=== PATIENT | female | born 1940 | race Two or more races ===

== ENCOUNTER → 2017-06-24 | Outpatient (CLI) | payer OTHER ==
[~2017-06-24] MED LIST: ACTO35TA PO; ASPI-516 PO; ASPI81CH6 CHEW; ENOX30P SQ; FERR325T18 PO; HYDR-3288 PO; LOSA50TA2 PO; SYNT25TA PO; VENTAER INH; VITA200C3 PO; WHEEMIS3
== END ==
LOC: CPRE 08:55
PROVIDERS: ATTEND Orthopaedic Surgery Sports Medicine
DX: M17.12 Unilateral primary osteoarthritis, left knee (principal)

== ENCOUNTER 2017-07-15 05:31 | Inpatient (IN) | payer OTHER, MEDICARE ==
[~2017-07-15] VITALS: Ht 160 cm; Wt 58.7 kg
[~2017-07-15 05:31] MED LIST changes: -ACTO35TA PO; -ASPI81CH6 CHEW; -ENOX30P SQ; -FERR325T18 PO; -HYDR-3288 PO; -SYNT25TA PO; -WHEEMIS3
[2017-07-15] MEDS ORDERED: ceFAZolin 2 GM PREMIX 50 ML IV SCH (06:00)
[2017-07-15] MEDS ORDERED: POVIDONE IODINE 5% (ANTISEPSIS KIT) 4 APPLICATIONS EACH NARE PRN (06:00)
[2017-07-15] MEDS ORDERED: VANCOMYCIN 1000 MG/NS 250 ML (for <70 kg) IV SCH ×2 (06:00)
[2017-07-15] MEDS ORDERED: DEXAMETHASONE SOD PHOS 20 MG/5 ML VIAL IV PRN (06:00)
[2017-07-15] MEDS ORDERED: POVIDONE IODINE 7.5% SCRUB 118 ML BOTTLE TOPICAL SCH (06:00)
[2017-07-15] MEDS ORDERED: SODIUM CHLORID 0.9% 500 ML IV PRN (06:00)
[2017-07-15] MEDS ORDERED: CHLORHEXIDINE GLUCONATE 2 % 1 PACK (2 CLOTHS) TOPICAL PRN (06:00)
[2017-07-15] MEDS ORDERED: LACTATED RINGER'S 1000 ML IV PRN (06:00)
[2017-07-15] MEDS ORDERED: METOPROLOL TARTRATE 25 MG TAB PO PRN (06:00)
[2017-07-15] MEDS ORDERED: CHLORHEXIDINE GLUCONATE 4% SOLN 120 ML BTL TOPICAL SCH (06:00)
[2017-07-15] MEDS ORDERED: FERR325T18 PO (06:21)
[2017-07-15] MEDS ORDERED: ACETAMINOPHEN 1000 MG/100 ML 100 ML IV ONE (06:53)
[2017-07-15] MEDS ORDERED: GENTAMICIN SULFATE 80 MG/2 ML VIAL ONE (06:58)
[2017-07-15] MEDS ORDERED: ENOX30P SQ (07:03)
[2017-07-15] MEDS ORDERED: HYDR-3288 PO (07:04)
[2017-07-15] MEDS ORDERED: ASPI81CH6 CHEW (07:04)
[2017-07-15] MEDS ORDERED: ZOLPIDEM TARTRATE 5 MG TAB PO PRN (07:15)
[2017-07-15] MEDS ORDERED: Post-op Orders (for Pharmacy) XX ONE (07:15)
[2017-07-15] MEDS ORDERED: MORPHINE SULFATE 4 MG/ML INJ IV PUSH PRN (07:15)
[2017-07-15] MEDS ORDERED: BISACODYL 10 MG SUPP RECTAL PRN (07:15)
[2017-07-15] MEDS ORDERED: ONDANSETRON HCL 4 MG/2 ML VIAL IVP PRN (07:15)
[2017-07-15] MEDS ORDERED: ACETAMINOPHEN/HYDROcodone 325 MG/7.5 MG TAB PO PRN (07:15)
[2017-07-15] MEDS ORDERED: diphenhydrAMINE HCL 50 MG/ML VIAL IV PUSH PRN (07:15)
[2017-07-15] MEDS ORDERED: PROPOFOL 500 MG/50 ML INJ 100 ML ONE (07:17)
[2017-07-15] MEDS ORDERED: BUPIVACAINE HCL PF 0.25% 30 ML VIAL ONE (07:46)
[2017-07-15] MEDS ORDERED: DEXAMETHASONE SOD PHOS PF 10 MG/ML VIAL ONE (07:46)
[2017-07-15] MEDS ORDERED: SODIUM CHLORIDE 0.9% 20 ML VIAL ONE (07:53)
[2017-07-15] MEDS ORDERED: BUPIVACAINE LIPOSOME PF 1.3% 20 ML VIAL ONE (07:55)
[2017-07-15] MEDS: SODIUM CHLOR 0.9% 1000 ML INJ 1,000 ML IV SCH ×2 (08:00→18:00)
[2017-07-15] MEDS ORDERED: TRANEXAMIC ACID INJ 890 MG in SODIUM CHLORIDE 0.9% INJ 100 ML IV SCH (08:01)
[2017-07-15] MEDS ORDERED: ROPIVACAINE PERI-ARTICULAR INJECTION. P-ARTICULR SCH ×5 (08:01)
[2017-07-15] MEDS ORDERED: TRANEXAMIC PERI-ARTICULAR 3,000 MG/NS 100 ML P-ARTICULR SCH ×2 (08:01)
[2017-07-15] MEDS: LOSARTAN 50 MG TAB PO SCH (09:00)
[2017-07-15] MEDS: FERROUS SULFATE 325 MG (65 MG ELEMENTAL IRON) TAB PO SCH (09:00)
[2017-07-15] MEDS ORDERED: DO NOT ADM ANY ANTICOAGULANT DRUGS PRN (11:25)
[2017-07-15] MEDS ORDERED: *morphine SULFATE 8 MG/ML PERIprocedure ONLY ONE ×3 (11:28→11:45)
[2017-07-15] MEDS ORDERED: *HYDROmorphone PF 1 MG VIAL PERIprocedural Use ONLY ONE (11:59)
--- NOTE | 2017-07-15 11:59 | MP ---
cc: MEL METZGER M.D. DATE OF SURGERY: 07/15/2017 PREOPERATIVE DIAGNOSIS Left knee osteoarthritis. POSTOPERATIVE DIAGNOSIS Left knee osteoarthritis. Left knee lateral femoral condyle fracture. PROCEDURE 1. Left total knee arthroplasty. 2. Open reduction internal fixation lateral femoral condyle fracture. SURGEON Dr. Mel Metzger. PLUMBING FOREMAN Mel Cheatham PA-C. ANESTHESIA General with a femoral nerve block. ESTIMATED BLOOD LOSS 100 cc. COMPLICATIONS Intraoperative fracture lateral femoral condyle. IMPLANTS USED DePuy Attune, size 5 posterior stabilized femoral component, size 4 rotating platform tibial baseplate, size 5 polyethylene tibial component, size 32 patella, Synthes five-hole 4.5 mm locking plate with an additional 4.5 mm lag screw. JUSTIFICATION This patient is a 76-year-old female with a history of severe end-stage osteoarthritis involving the left knee. She has severe disabling pain with standing, walking, ambulation and weightbearing and even severe pain at rest. She has failed greater than three months of nonoperative conservative treatment. The patient was counseled as to the treatment options. We spoke about the option of surgery which will consist of a total knee arthroplasty. X-rays of the patient's left knee did reveal severe end-stage osteoarthritis with severe [id number] joint space narrowing, subchondral sclerosis, subchondral cysts, osteophyte formation and varus deformity. In regards to the surgical procedure, the total knee arthroplasty has risks which include but are not limited to anesthesia, bleeding, infection, damage to nerves and blood vessels, fracture, stiffness, blood clots and pulmonary embolism. The patient asked several questions which were answered and she did wish to proceed with surgery. PROCEDURE IN DETAIL A written consent was obtained. The patient was identified by name. General anesthesia was administered as well as two grams of IV Ancef and one gram of IV vancomycin. A well-padded tourniquet was placed on the left thigh. The left lower extremity was prepped and draped using isopropyl alcohol, Hibiclens solution and ChloraPrep solution after a timeout was performed. An Esmarch bandage was used to exsanguinate the left lower extremity and tourniquet to 250 mmHg. A longitudinal incision was made over the anterior aspect of the left knee. A medial parapatellar arthrotomy was performed. The patella was everted. A patellar resection guide was used to resect approximately 7 mm of patella. The size 32 mm guide was placed. Three drill holes were placed and the 32 mm patellar trial fit well. Attention was turned to the femur where an intramedullary guide siomara was placed and the distal femoral guide was set to remove 10 mm of distal femur 5 degrees off the anatomic valgus axis alignment. She did have a significant preoperative flexion contracture. An oscillating saw was used to perform the distal femoral cut. The patient did have significant osteoporosis of bone. Attention was turned to the tibia where an extramedullary tibial guide was set to remove 5 mm off the lowest portion of the medial tibial plateau. The tibial guide was pinned in place and tibial cut was performed. A 5 mm spacer block showed full extension. Attention was turned back to the femur where an AP sizing block measured size 5. The anterior reference 3 degree external rotation guide was used to pin a size [address] The anterior, posterior and chamfer cuts were performed. A size 5 PCL box guide was pinned in place. The PCL was box cut with an oscillating saw. The medial and lateral meniscus remnants were removed as well as bone and soft tissue debris from the posterior portion of the knee. A size 4 tibia baseplate was pinned in place and the tibia was drilled and punched. Trial components were evaluated and the leg showed full motion with extension to 0 degrees, flexion to 140. No evidence of tibial lift-off. Varus-valgus balance appeared appropriate and symmetric and the patella was noted to track centrally. When removing the trial femoral component it was noted that there appeared to be a fracture in the region of the lateral femoral condyle. At this point a fracture reduction tenaculum clamp was used to clamp and hold the fracture in a reduced position. A Synthes five-hole distal femur locking plate was then pre-contoured and applied to the lateral femoral condyle and distal femur. A combination of both locking and nonlocking screws were used for fixation. An additional 4.5 mm lag screw was then also placed anterior to the plate across the fracture for additional purchase and fixation. The fracture showed excellent stability after open reduction, internal fixation. At this point trial components were again evaluated and the final components cemented in place. With the final components the leg could achieve full extension to 0 degrees and flexion to 140. No evidence of tibial lift-off. Varus-valgus balance appeared appropriate and the patella was noted to track centrally. The knee was then thoroughly irrigated with sterile saline pulse lavage antibiotic-impregnated solution. The arthrotomy incision was closed with #1 Vicryl suture, the subcutaneous layer with 2-0 Vicryl suture and skin was closed with Dermabond. Sterile dressing was applied. The patient tolerated the procedure well. Mel Cheatham, physician distribution center assistant certified, was present during the entire procedure to include patient positioning and the procedure itself. The medical necessity of the physician distribution center assistant was indicated in this case due to the complexity of the procedure. He assisted in appropriate manipulation of the leg and also retraction of muscle, tendon, bone and neurovascular structures. He assisted with preparation of bone and also implantation of the prosthetic replacement. MD PRERNA Hinojosa/LESVIA /11:09 AM /11:35 AM
[2017-07-15] MEDS ORDERED: SODIUM CHLORIDE 0.9% 20 ML VIAL IV ONE (12:00)
[2017-07-15] MEDS ORDERED: MIDAZOLAM HCL 2 MG/2 ML VIAL IV ONE (12:00)
[2017-07-15] MEDS ORDERED: LACTATED RINGER'S 1000 ML INJ 1,000 ML IV ONE (12:00)
[2017-07-15] MEDS ORDERED: PROPOFOL 200 MG/20 ML AMP IV ONE (12:00)
[2017-07-15] MEDS ORDERED: PHENYLEPH/NS 1000 MCG/10 ML SYR IV ONE (12:00)
--- NOTE | 2017-07-15 12:48 | PD.CONS ---
HPI Service [facility] Consult Requested By Orthopedic surgery Reason for Consult Medical management Primary Care Physician Dariela Helton MD Diagnoses: History of Present Illness 76-year-old female with a history of end-stage right knee osteoarthritis with despite medical management continued to have severe right knee pain affecting her daily living up activity was taking to the operating room today and underwent right knee arthroplasty. [facility] was consulted for medical management. Case discussed with patient's and son. She reported history of hypertension. Currently denies any chest pain or shortness of breath Review of Systems Except as stated in HPI: all other systems reviewed are Neg Past Family Social History Allergies: Coded Allergies: chlorpromazine (Unverified Allergy, Severe, 03/19/17) prochlorperazine (Unverified Allergy, Severe, 03/19/17) Past Medical History Right knee osteoarthritis Hypertension Past Surgical History Right knee arthroplasty Wrist surgery Reported Medications See EMR Family History Noncontributory Social History Patient denies tobacco, alcohol or illicit drug intake Physical Exam Vital Signs Vital Signs Date Time Temp Pulse Resp B/P (MAP) Pulse Ox O2 Delivery O2 Flow Rate FiO2 07/15/17 12:30 79 12 115/68 (84) 96 07/15/17 12:15 96.9 76 12 113/65 (81) 98 Nasal Cannula 2 07/15/17 12:00 75 20 113/65 (81) 100 07/15/17 11:45 75 12 124/71 (88) 100 07/15/17 11:30 80 10 138/87 (104) 100 07/15/17 11:24 97.7 81 11 131/77 (95) 100 Nasal Cannula 2 07/15/17 06:20 97.9 75 20 161/90 (113) 99 Physical Exam GENERAL: This is a well-nourished, well-developed patient, in no apparent distress. SKIN: No rashes, ecchymoses or lesions. Cool and dry. HEAD: Atraumatic. Normocephalic. No temporal or scalp tenderness. EYES: Pupils equal round and reactive. Extraocular motions intact. No scleral icterus. No injection or drainage. ENT: Nose without bleeding, purulent drainage or septal hematoma. Throat without erythema, tonsillar hypertrophy or exudate. Uvula midline. Airway patent. NECK: Trachea midline. No JVD or lymphadenopathy. Supple, nontender, no meningeal signs. CARDIOVASCULAR: Regular rate and rhythm without murmurs, gallops, or rubs. RESPIRATORY: Clear to auscultation. Breath sounds equal bilaterally. No wheezes , rales, or rhonchi. GASTROINTESTINAL: Abdomen soft, non-tender, nondistended. No hepato-splenomegaly , or palpable masses. No guarding. MUSCULOSKELETAL: Extremities without clubbing, cyanosis, or edema. Right knee repair-neurovascular intact NEUROLOGICAL: Awake and alert. Cranial nerves II through XII intact. Motor and sensory grossly within normal limits. Five out of 5 muscle strength in all muscle groups. Normal speech. Assessment and Plan Assessment and Plan 76-year-old female with Left knee osteoarthritis 1. Left total knee arthroplasty. 2. Open reduction internal fixation lateral femoral condyle fracture. Management per orthopedic surgery IV pain management accordingly PT consult to treat and eval Lovenox for DVT prophylaxis Hypertension Resume Losartan-HCTZ DVT prophylaxis: Lovenox Thank you for this consultation Code Status Full code Discussed Condition With Patient, ,son Jordan Abarca MD Jul 15, 2017 12:48
--- NOTE | 2017-07-15 12:52 | RADRPT ---
EXAM DATE/TIME: 07/15/2017 12:00 [place] COMPARISON: No previous studies available for comparison. INDICATIONS : Post op left knee. MEDICAL HISTORY : None. SURGICAL HISTORY : None. ENCOUNTER: Initial ACUITY: 1 day PAIN SCORE: 0/10 LOCATION: Left knee FINDINGS: Two view examination of the left knee demonstrates total knee arthroplasty. The components are approp riately positioned. A side plate and osseous screw secures the lateral aspect of the distal femoral m etadiaphysis. Small cleft in the medial aspect of the tibial metaphysis may represent a small cut in the regional cortex with possible associated nondisplaced fracture. Expected superficial and deep tis pascale air. CONCLUSION: 1. Left total knee arthroplasty. All 3 components appear to be appropriately positioned. 2. Sideplate and osseous screws on the medial aspect of the distal femoral metadiaphysis. No acute fr acture. 3. A small cleft along the proximal medial tibial metaphysis and possible associated nondisplaced fra cture Kodak Adame MD on July 15, 2017 at 12:34 Board Certified Radiologist. This report was verified electronically.
[2017-07-15] MEDS ORDERED: RESP: ALBUTEROL 2.5 MG/IPRATROPIUM 0.5 MG NEB (PRN) NEB (13:00)
[2017-07-15 13:30] VITALS: BP 96/57; PULSE 74; RESP 19; TEMP 96.2; O2SAT 96
[2017-07-15] MEDS: HYDROCHLOROTHIAZIDE 12.5 MG CAP PO SCH (15:17)
[2017-07-15 16:00] VITALS: BP 106/62; PULSE 73; RESP 20; TEMP 95.1; O2SAT 93
[2017-07-15 20:00] VITALS: BP 130/64; PULSE 92; RESP 17; TEMP 96.5; O2SAT 95
[2017-07-15] MEDS: ENOXAPARIN SODIUM 30 MG/0.3 ML SYRINGE SQ SCH (23:02)
[2017-07-16] VITALS (10 sets, daily range): BP systolic 100–179; BP diastolic 53–99; PULSE 94–115; RESP 16–18; TEMP 96–98.2; O2SAT 92–97
[2017-07-16] MEDS: SODIUM CHLOR 0.9% 1000 ML INJ 1,000 ML IV SCH ×2 (03:12→12:56)
[2017-07-16] MEDS: ACETAMINOPHEN/HYDROcodone 325 MG/7.5 MG TAB PO PRN ×3 (06:55→18:39)
[2017-07-16 08:41] LABS: HEMATOCRIT 29.9 % (35.0-46.0); MEAN CELL VOLUME 86.2 FL (80.0-100.0); MEAN CORPUSCULAR HEMOGLOBIN 29.2 PG (27.0-34.0); MEAN CORPUSCULAR HGB CONC 33.9 % (32.0-36.0); PLATELET COUNT 219 TH/MM3 (150-450); RED BLOOD COUNT 3.47 MIL/MM3 (4.00-5.30); RED CELL DISTRIBUTION WIDTH 12.6 % (11.6-17.2); REVIEW FLAG FINAL; WHITE BLOOD COUNT 9.1 TH/MM3 (4.0-11.0)
--- NOTE | 2017-07-16 08:52 | PD.ORT.PN ---
Subjective Post Op Day #: 1 Subjective Remarks pain controlled with meds Objective Vitals Vital Signs Date Time Temp Pulse Resp B/P (MAP) Pulse Ox O2 Delivery O2 Flow Rate FiO2 07/16/17 08:00 98.0 115 18 123/65 (84) 92 07/16/17 07:55 18 07/16/17 04:00 98.2 110 18 100/53 (69) 94 07/16/17 00:30 97.9 110 17 107/56 (73) 94 07/15/17 20:00 96.5 92 17 130/64 (86) 95 07/15/17 16:00 95.1 73 20 106/62 (77) 93 07/15/17 13:30 96.2 74 19 96/57 (70) 96 07/15/17 12:30 79 12 115/68 (84) 96 07/15/17 12:15 96.9 76 12 113/65 (81) 98 Nasal Cannula 2 07/15/17 12:00 75 20 113/65 (81) 100 07/15/17 11:45 75 12 124/71 (88) 100 07/15/17 11:30 80 10 138/87 (104) 100 07/15/17 11:24 97.7 81 11 131/77 (95) 100 Nasal Cannula 2 I/O 07/15/17 07/15/17 07/15/17 07/16/17 07/16/17 07/16/17 07:00 15:00 23:00 07:00 15:00 23:00 Intake Total 2390 ml 480 ml 1604 ml Output Total 1000 ml 850 ml 250 ml Balance 1390 ml -370 ml 1354 ml Intake Oral 590 ml 480 ml IV Total 1800 ml 1604 ml Output Urine Total 900 ml 850 ml 250 ml Estimated Blood Loss 100 ml # Bowel Movements 0 0 Result Diagram: 07/16/17 0800 Objective Remarks in bed, nad, in room dressing c/d/i neg homans nvi Assessment & Plan Ortho Post Op Day #: 1 Problem List: Assessment and Plan s/p L TKA, ORIF Lateral Femoral Condyle fx NWB daily dressing changes lovenox d/c planning to snf rx in chart f/up dr. olsen 2 weeks Deonte Cheatham Jul 16, 2017 08:52
--- NOTE | 2017-07-16 08:53 | HHI.DCPOC ---
Discharge Care Plan Diagnosis: (1) Primary localized osteoarthrosis, lower leg Your Health Problems Are: Difficulty with ADL Goals to Promote Your Health * To prevent worsening of your condition and complications * To maintain your health at the optimal level Directions to Meet Your Goals Take your medications as prescribed Follow your dietary instruction Follow activity as directed Keep your appointments as scheduled Take your immunizations and boosters as scheduled If your symptoms worsen call your PCP, if no PCP go to Urgent Care Center or Emergency Room Smoking is Dangerous to Your Health. Avoid second hand smoke Call the 24-hour hour crisis hotline for domestic abuse at Deonte Cheatham Jul 16, 2017 08:53
[2017-07-16] MEDS ORDERED: WHEEMIS3 (08:55)
[2017-07-16] MEDS: HYDROCHLOROTHIAZIDE 12.5 MG CAP PO SCH (09:00)
[2017-07-16 09:04] LABS: POTASSIUM 3.7 MEQ/L (3.5-5.1)
[2017-07-16] MEDS: LOSARTAN 50 MG TAB PO SCH (10:41)
[2017-07-16] MEDS: FERROUS SULFATE 325 MG (65 MG ELEMENTAL IRON) TAB PO SCH (10:41)
--- NOTE | 2017-07-16 11:38 | HHI.PR ---
Subjective Remarks Patient seen and examined Stable and no acute event overnight Pain well controlled Objective Vitals Vital Signs Date Time Temp Pulse Resp B/P (MAP) Pulse Ox O2 Delivery O2 Flow Rate FiO2 07/16/17 10:51 97 21 07/16/17 08:00 98.0 115 18 123/65 (84) 92 07/16/17 07:55 18 07/16/17 04:00 98.2 110 18 100/53 (69) 94 07/16/17 00:30 97.9 110 17 107/56 (73) 94 07/15/17 20:00 96.5 92 17 130/64 (86) 95 07/15/17 16:00 95.1 73 20 106/62 (77) 93 07/15/17 13:30 96.2 74 19 96/57 (70) 96 07/15/17 12:30 79 12 115/68 (84) 96 07/15/17 12:15 96.9 76 12 113/65 (81) 98 Nasal Cannula 2 07/15/17 12:00 75 20 113/65 (81) 100 07/15/17 11:45 75 12 124/71 (88) 100 I/O 07/15/17 07/15/17 07/15/17 07/16/17 07/16/17 07/16/17 07:00 15:00 23:00 07:00 15:00 23:00 Intake Total 2390 ml 480 ml 1604 ml Output Total 1000 ml 850 ml 250 ml Balance 1390 ml -370 ml 1354 ml Intake Oral 590 ml 480 ml IV Total 1800 ml 1604 ml Output Urine Total 900 ml 850 ml 250 ml Estimated Blood Loss 100 ml # Bowel Movements 0 0 Result Diagram: 07/16/17 0800 07/16/17 0800 Imaging Last Impressions Knee X-Ray 07/15/17700 Signed Impressions: Service Date/Time: Saturday, July 15, 2017 12:00 - CONCLUSION: 1. Left total knee arthroplasty. All 3 components appear to be appropriately positioned. 2. Sideplate and osseous screws on the medial aspect of the distal femoral metadiaphysis. No acute fracture. 3. A small cleft along the proximal medial tibial metaphysis and possible associated nondisplaced fracture Kodak Adame MD Objective Remarks GENERAL: NAD SKIN: Warm and dry. HEAD: Normocephalic. EYES: No scleral icterus. No injection or drainage. NECK: Supple, trachea midline. No JVD or lymphadenopathy. CARDIOVASCULAR: Regular rate and rhythm without murmurs, gallops, or rubs. RESPIRATORY: Breath sounds equal bilaterally. No accessory muscle use. GASTROINTESTINAL: Abdomen soft, non-tender, nondistended. MUSCULOSKELETAL: No cyanosis, or edema. left knee repair BACK: Nontender without obvious deformity. No CVA tenderness. A/P Problem List: (1) Primary localized osteoarthrosis, lower leg ICD Code: M17.10 - Unilateral primary osteoarthritis, unspecified knee Assessment and Plan 76-year-old female with Left knee osteoarthritis 1. Left total knee arthroplasty. 2. Open reduction internal fixation lateral femoral condyle fracture. Management per orthopedic surgery IV pain management accordingly PT to treat and eval Lovenox for DVT prophylaxis Hypertension Continue Losartan-HCTZ DVT prophylaxis: Lovenox Problem Qualifiers (1) Primary localized osteoarthrosis, lower leg: Qualified Codes: M17.12 - Unilateral primary osteoarthritis, left knee Jordan Abarca MD Jul 16, 2017 11:38
[2017-07-16] MEDS ORDERED: PROPOFOL 200 MG/20 ML AMP IV ONE (12:00)
[2017-07-16] MEDS ORDERED: DEXAMETHASONE SOD PHOS 4 MG/ML VIAL IV ONE (12:00)
[2017-07-16] MEDS ORDERED: ONDANSETRON HCL 4 MG/2 ML VIAL IV ONE (12:00)
[2017-07-16] MEDS ORDERED: SUCCINYLCHOLINE CHLORIDE 100 MG/5 ML SYRINGE IV PUSH ONE (12:00)
[2017-07-16] MEDS ORDERED: LIDOCAINE HCL 1% PF 5 ML SYRINGE OTHER ONE (12:00)
[2017-07-16] MEDS ORDERED: PHENYLEPH/NS 1000 MCG/10 ML SYR IV ONE (12:00)
[2017-07-16] MEDS: MAGNESIUM HYDROXIDE SUSP 30 ML CUP PO SCH ×2 (16:46→18:54)
[2017-07-16] MEDS: DOCUSATE SODIUM 100 MG CAP PO SCH (16:46)
[2017-07-16] MEDS: MULTIVITAMINS/MINERALS THERAPEUTIC TAB PO SCH (20:45)
[2017-07-16] MEDS ORDERED: DOCUSATE SODIUM 100 MG CAP PO SCH (21:00)
[2017-07-16] MEDS ORDERED: cloNIDine HCL 0.1 MG TAB PO ONE (21:15)
[2017-07-16] MEDS: ENOXAPARIN SODIUM 30 MG/0.3 ML SYRINGE SQ SCH (22:03)
[2017-07-17] VITALS (7 sets, daily range): BP systolic 126–161; BP diastolic 72–94; PULSE 90–103; RESP 16–18; TEMP 95.8–98.9; O2SAT 96–100
--- NOTE | 2017-07-17 08:31 | PD.ORT.PN ---
Subjective Post Op Day #: 2 Subjective Remarks pain controlled with meds Objective Vitals Vital Signs Date Time Temp Pulse Resp B/P (MAP) Pulse Ox O2 Delivery O2 Flow Rate FiO2 07/17/17 04:00 97.2 103 17 161/93 (115) 96 07/16/17 23:29 97.4 96 16 155/88 (110) 96 07/16/17 20:45 109 171/99 (123) 07/16/17 19:39 96.8 106 17 170/96 (120) 94 07/16/17 16:45 166/83 (110) 07/16/17 16:00 96.0 99 18 179/91 (120) 97 07/16/17 13:59 18 07/16/17 12:00 97.2 100 18 143/71 (95) 94 07/16/17 10:51 97 21 I/O 07/16/17 07/16/17 07/16/17 07/17/17 07/17/17 07/17/17 07:00 15:00 23:00 07:00 15:00 23:00 Intake Total 1604 ml 600 ml 240 ml 240 ml Output Total 250 ml 100 ml Balance 1354 ml 500 ml 240 ml 240 ml Intake Oral 600 ml 240 ml 240 ml IV Total 1604 ml Output Urine Total 250 ml 100 ml # Voids 1 1 # Bowel Movements 0 0 0 Result Diagram: 07/16/17 0800 07/16/17 0800 Objective Remarks in bed, nad, in room incision no erythema, no drainage neg homans nvi Assessment & Plan Ortho Post Op Day #: 2 Problem List: Assessment and Plan s/p L TKA, ORIF Lateral Femoral Condyle fx NWB ROM as tolerated, ok to use CPM daily dressing changes lovenox HTN per med d/c planning to snf rx in chart f/up dr. olsen 2 weeks Deonte Cheatham Jul 17, 2017 08:31
[2017-07-17] MEDS: LOSARTAN 50 MG TAB PO SCH (08:50)
[2017-07-17] MEDS: HYDROCHLOROTHIAZIDE 12.5 MG CAP PO SCH (08:50)
[2017-07-17] MEDS: ACETAMINOPHEN/HYDROcodone 325 MG/7.5 MG TAB PO PRN ×3 (08:51→18:05)
[2017-07-17] MEDS: MULTIVITAMINS/MINERALS THERAPEUTIC TAB PO SCH ×2 (08:51→21:18)
[2017-07-17] MEDS: DOCUSATE SODIUM 100 MG CAP PO SCH (08:51)
[2017-07-17] MEDS: FERROUS SULFATE 325 MG (65 MG ELEMENTAL IRON) TAB PO SCH (08:51)
[2017-07-17] MEDS: MAGNESIUM HYDROXIDE SUSP 30 ML CUP PO SCH ×2 (08:51→21:18)
[2017-07-17] MEDS: SODIUM CHLOR 0.9% 1000 ML INJ 1,000 ML IV SCH ×3 (10:00→20:00)
[2017-07-17 11:47] LABS: HEMATOCRIT 30.3 % (35.0-46.0); MEAN CELL VOLUME 85.4 FL (80.0-100.0); MEAN CORPUSCULAR HEMOGLOBIN 29.6 PG (27.0-34.0); MEAN CORPUSCULAR HGB CONC 34.6 % (32.0-36.0); PLATELET COUNT 217 TH/MM3 (150-450); RED BLOOD COUNT 3.55 MIL/MM3 (4.00-5.30); RED CELL DISTRIBUTION WIDTH 12.6 % (11.6-17.2); REVIEW FLAG FINAL; WHITE BLOOD COUNT 9.3 TH/MM3 (4.0-11.0)
[2017-07-17 12:16] LABS: BICARBONATE 29.3 MEQ/L (21.0-32.0); POTASSIUM 3.8 MEQ/L (3.5-5.1)
--- NOTE | 2017-07-17 12:57 | HHI.PR ---
Subjective Remarks Patient seen and examined BP elevated patient denies any significant pain Denies any visual change. Objective Vitals Vital Signs Date Time Temp Pulse Resp B/P (MAP) Pulse Ox O2 Delivery O2 Flow Rate FiO2 07/17/17 09:54 97 07/17/17 08:00 98.9 100 18 161/94 (116) 97 07/17/17 04:00 97.2 103 17 161/93 (115) 96 07/16/17 23:29 97.4 96 16 155/88 (110) 96 07/16/17 20:45 109 171/99 (123) 07/16/17 19:39 96.8 106 17 170/96 (120) 94 07/16/17 16:45 166/83 (110) 07/16/17 16:00 96.0 99 18 179/91 (120) 97 07/16/17 13:59 18 I/O 07/16/17 07/16/17 07/16/17 07/17/17 07/17/17 07/17/17 07:00 15:00 23:00 07:00 15:00 23:00 Intake Total 1604 ml 600 ml 240 ml 240 ml Output Total 250 ml 100 ml Balance 1354 ml 500 ml 240 ml 240 ml Intake Oral 600 ml 240 ml 240 ml IV Total 1604 ml Output Urine Total 250 ml 100 ml # Voids 1 1 # Bowel Movements 0 0 0 Result Diagram: 07/17/17 1035 07/17/17 1035 Objective Remarks GENERAL: NAD SKIN: Warm and dry. HEAD: Normocephalic. EYES: No scleral icterus. No injection or drainage. NECK: Supple, trachea midline. No JVD or lymphadenopathy. CARDIOVASCULAR: Regular rate and rhythm without murmurs, gallops, or rubs. RESPIRATORY: Breath sounds equal bilaterally. No accessory muscle use. GASTROINTESTINAL: Abdomen soft, non-tender, nondistended. MUSCULOSKELETAL: No cyanosis, or edema. left knee repair BACK: Nontender without obvious deformity. No CVA tenderness. A/P Problem List: (1) Primary localized osteoarthrosis, lower leg ICD Code: M17.10 - Unilateral primary osteoarthritis, unspecified knee Assessment and Plan 76-year-old female with Left knee osteoarthritis 1. Left total knee arthroplasty. 2. Open reduction internal fixation lateral femoral condyle fracture. Management per orthopedic surgery IV pain management accordingly PT to treat and eval Lovenox for DVT prophylaxis Hypertension Continue Losartan-HCTZ Add hydralazine when necessary DVT prophylaxis: Lovenox Problem Qualifiers (1) Primary localized osteoarthrosis, lower leg: Qualified Codes: M17.12 - Unilateral primary osteoarthritis, left knee Jordan Abarca MD Jul 17, 2017 12:57
[2017-07-17] MEDS ORDERED: hydrALAZINE HCL 25 MG TAB PO PRN (13:00)
[2017-07-17] MEDS: ENOXAPARIN SODIUM 30 MG/0.3 ML SYRINGE SQ SCH (21:19)
[2017-07-18] VITALS: BP 158/90; PULSE 108; RESP 18; TEMP 98.9; O2SAT 95
[2017-07-18 04:00] VITALS: BP 154/88; PULSE 106; RESP 18; TEMP 98; O2SAT 96
[2017-07-18] MEDS: SODIUM CHLOR 0.9% 1000 ML INJ 1,000 ML IV SCH ×2 (05:51→14:45)
[2017-07-18 08:00] VITALS: BP 151/90; PULSE 102; RESP 19; TEMP 99.4; O2SAT 97
--- NOTE | 2017-07-18 08:15 | PD.ORT.PN ---
Subjective Post Op Day #: 3 Subjective Remarks pain controlled with meds. feeling a little better. Objective Vitals Vital Signs Date Time Temp Pulse Resp B/P (MAP) Pulse Ox O2 Delivery O2 Flow Rate FiO2 07/18/17 04:00 98.0 106 18 154/88 (110) 96 07/18/17 00:00 98.9 108 18 158/90 (112) 95 07/17/17 19:35 96.8 102 16 131/73 (92) 100 07/17/17 18:12 96 21 07/17/17 16:00 97.9 94 18 133/80 (97) 96 07/17/17 12:00 95.8 90 18 126/72 (90) 97 07/17/17 09:54 97 I/O 07/17/17 07/17/17 07/17/17 07/18/17 07/18/17 07/18/17 07:00 15:00 23:00 07:00 15:00 23:00 Intake Total 240 ml 600 ml 360 ml 300 ml Output Total 800 ml Balance 240 ml 600 ml 360 ml -500 ml Intake Oral 240 ml 600 ml 360 ml 300 ml Output Urine Total 800 ml # Voids 1 2 1 # Bowel Movements 0 2 0 1 Result Diagram: 07/17/17 1035 07/17/17 1035 Objective Remarks in bed, nad, in room dressing c/d/i neg mey nvi Assessment & Plan Ortho Post Op Day #: 3 Problem List: Assessment and Plan s/p L TKA, ORIF Lateral Femoral Condyle fx NWB ROM as tolerated, ok to use CPM daily dressing changes lovenox HTN per med d/c planning to snf - cleared today rx in chart f/up dr. olsen 2 weeks Deonte Cheatham Jul 18, 2017 08:15
[2017-07-18 08:20] LABS: HEMATOCRIT 30.6 % (35.0-46.0); MEAN CELL VOLUME 85.5 FL (80.0-100.0); MEAN CORPUSCULAR HEMOGLOBIN 29.4 PG (27.0-34.0); MEAN CORPUSCULAR HGB CONC 34.3 % (32.0-36.0); PLATELET COUNT 195 TH/MM3 (150-450); RED BLOOD COUNT 3.57 MIL/MM3 (4.00-5.30); RED CELL DISTRIBUTION WIDTH 12.5 % (11.6-17.2); REVIEW FLAG FINAL; WHITE BLOOD COUNT 9.3 TH/MM3 (4.0-11.0)
[2017-07-18] MEDS: HYDROCHLOROTHIAZIDE 12.5 MG CAP PO SCH (08:25)
[2017-07-18] MEDS: MAGNESIUM HYDROXIDE SUSP 30 ML CUP PO SCH (08:25)
[2017-07-18] MEDS: FERROUS SULFATE 325 MG (65 MG ELEMENTAL IRON) TAB PO SCH (08:25)
[2017-07-18] MEDS: LOSARTAN 50 MG TAB PO SCH (08:26)
[2017-07-18] MEDS: MULTIVITAMINS/MINERALS THERAPEUTIC TAB PO SCH (08:26)
[2017-07-18] MEDS: DOCUSATE SODIUM 100 MG CAP PO SCH (08:26)
[2017-07-18] MEDS: ACETAMINOPHEN/HYDROcodone 325 MG/7.5 MG TAB PO PRN ×2 (08:28→13:14)
[2017-07-18 08:57] LABS: BICARBONATE 32.1 MEQ/L (21.0-32.0); POTASSIUM 4.1 MEQ/L (3.5-5.1)
--- NOTE | 2017-07-18 10:14 | HHI.PR ---
Subjective Remarks Patient seen and examined Stable, good appetite, patient currently controlled some anxiety regarding discharge however stable Objective Vitals Vital Signs Date Time Temp Pulse Resp B/P (MAP) Pulse Ox O2 Delivery O2 Flow Rate FiO2 07/18/17 08:00 99.4 102 19 151/90 (110) 97 07/18/17 04:00 98.0 106 18 154/88 (110) 96 07/18/17 00:00 98.9 108 18 158/90 (112) 95 07/17/17 19:35 96.8 102 16 131/73 (92) 100 07/17/17 18:12 96 21 07/17/17 16:00 97.9 94 18 133/80 (97) 96 07/17/17 12:00 95.8 90 18 126/72 (90) 97 I/O 07/17/17 07/17/17 07/17/17 07/18/17 07/18/17 07/18/17 07:00 15:00 23:00 07:00 15:00 23:00 Intake Total 240 ml 600 ml 360 ml 300 ml Output Total 800 ml Balance 240 ml 600 ml 360 ml -500 ml Intake Oral 240 ml 600 ml 360 ml 300 ml Output Urine Total 800 ml # Voids 1 2 1 # Bowel Movements 0 2 0 1 Result Diagram: 07/18/17 0800 07/18/17 0800 Objective Remarks GENERAL: NAD SKIN: Warm and dry. HEAD: Normocephalic. EYES: No scleral icterus. No injection or drainage. NECK: Supple, trachea midline. No JVD or lymphadenopathy. CARDIOVASCULAR: Regular rate and rhythm without murmurs, gallops, or rubs. RESPIRATORY: Breath sounds equal bilaterally. No accessory muscle use. GASTROINTESTINAL: Abdomen soft, non-tender, nondistended. MUSCULOSKELETAL: No cyanosis, or edema. left knee repair BACK: Nontender without obvious deformity. No CVA tenderness. A/P Problem List: (1) Primary localized osteoarthrosis, lower leg ICD Code: M17.10 - Unilateral primary osteoarthritis, unspecified knee Assessment and Plan 76-year-old female with Left knee osteoarthritis 1. Left total knee arthroplasty. 2. Open reduction internal fixation lateral femoral condyle fracture. Management per orthopedic surgery IV pain management accordingly PT to treat and eval Lovenox for DVT prophylaxis Hypertension Continue Losartan-HCTZ hydralazine when necessary DVT prophylaxis: Lovenox Discharge Planning D/c Problem Qualifiers (1) Primary localized osteoarthrosis, lower leg: Qualified Codes: M17.12 - Unilateral primary osteoarthritis, left knee Jordan Abarca MD Jul 18, 2017 10:14
[2017-07-18 12:00] VITALS: BP 139/90; PULSE 92; RESP 18; TEMP 98.5; O2SAT 99
--- NOTE | 2017-07-22 08:03 | MD ---
cc: MEL METZGER ADMISSION DATE: 07/15/2017 DISCHARGE DATE: 07/18/2017 ADMISSION DIAGNOSIS Severe degenerative osteoarthritis. DISCHARGE DIAGNOSIS Severe degenerative osteoarthritis and left knee lateral femoral condyle fracture HISTORY OF PRESENT ILLNESS Mrs. Kidd is a 76-year-old female who is a patient of Dr. Mel Metzger at the [facility]. She is currently noted treatment for severe end-stage osteoarthritis of the left knee. She states the pain is a severe constant aching sensation aggravated by weightbearing activities. She has failed greater than 3 months of conservative treatment to include medications, bracing, physical therapy, home exercises without relief of symptoms. She does have x-ray evidence of severe degenerative osteoarthritis of the left knee. While in the office, the patient was counseled on her diagnosis and treatment options, risks, benefits, indications were all discussed in great detail with the patient and the patient's . She did elect to proceed with surgical intervention to include a left total knee arthroplasty. Date of surgery 07/15/2017 left total knee arthroplasty and open reduction internal fixation lateral femoral condyle fracture. Postop after surgery the patient admitted to [facility] where she received appropriate Medical management and pain control, DVT prophylaxis as well as physical therapy. DISCHARGE Once being discharged from the hospital the patient is cleared to go to a alf facility. She is in stable condition. She is to remain non-weightbearing on her left lower extremity. She may continue with range of motion as tolerated left knee. She is to receive daily dressing changes and has been instructed on appropriate wound care management. She has been provided prescriptions for pain control as well as DVT prophylaxis medication. She has also been provided a follow-up appointment to see Dr. Mel Metzger in the office next week. The patient and the patient's have asked appropriate questions which have all been answered. The patient is cleared for discharge. Dictated by. Colin Cheatham PA-C MD PRERNA Hinojosa/ /8:16 AM /8:00 AM
== END 2017-07-18 15:42 | DRG 470 ==
LOC: HSDI 05:31 → N06B 13:43
PROVIDERS: ADMIT Orthopaedic Surgery Sports Medicine; ATTEND Orthopaedic Surgery Sports Medicine
PROC: 0QSC04Z Reposition Left Lower Femur with Internal Fixation Device, Open Approach (ICD-10-PCS; 2017-07-15)
PROC: 3E0T3BZ Introduction of Anesthetic Agent into Peripheral Nerves and Plexi, Percutaneous Approach (ICD-10-PCS; 2017-07-15)
PROC: 0SRD0J9 Replacement of Left Knee Joint with Synthetic Substitute, Cemented, Open Approach (ICD-10-PCS; principal; 2017-07-15 08:14)
DX: M17.12 Unilateral primary osteoarthritis, left knee (principal); I10 Essential (primary) hypertension; M96.662 Fracture of femur following insertion of orthopedic implant, joint prosthesis, or bone plate, left leg; M81.0 Age-related osteoporosis without current pathological fracture; J45.909 Unspecified asthma, uncomplicated; Y79.2 Prosthetic and other implants, materials and accessory orthopedic devices associated with adverse incidents; Y92.234 Operating room of hospital as the place of occurrence of the external cause
CPT/HCPCS: 73560; 80048; 85027; 86850; 86900; 86901; 94150; C1713; C1769; C1776; C9290; J0131; J0330; J0690; J0735; J1100; J1170; J1580; J1650; J1885; J2250; J2270; J2370; J2405; J2795; J3010; J3370; J7030; J7050; J7120; L1830